=== PATIENT | female | born 1975 | race Caucasian/White ===

== ENCOUNTER 2023-08-15 15:15 | Outpatient (CLI) | payer MEDICAID ==
[2023-08-15 15:38] LABS: BASOPHILS # (AUTO) 0.1 10^3/uL (0.0-0.1); BASOPHILS % (AUTO) 0.7 %; EOSINOPHILS # (AUTO) 0.2 10^3/uL (0.0-0.7); EOSINOPHILS % (AUTO) 2.3 %; HCT - HEMATOCRIT 38.1 % (37.0-47.0); HGB - HEMOGLOBIN 12.4 g/dL (12.0-16.0); LYMPHOCYTES % (AUTO) 25.2 %; MEAN CORPUSCULAR HEMOGLOBIN 31.8 pg (27.0-31.0); MEAN CORPUSCULAR HGB CONC 32.5 g/dL (32.0-36.0); MEAN CORPUSCULAR VOLUME 97.7 fL (81.0-99.0); MEAN PLATELET VOLUME 10.2 fL (7.9-10.8); MONOCYTES # (AUTO) 0.4 10^3/uL (0.0-1.0); MONOCYTES % (AUTO) 5.2 %; NEUTROPHILS # (AUTO) 5.4 10^3/uL (1.5-6.6); NEUTROPHILS % (AUTO) 66.5 %; PLT - PLATELET COUNT 255 10^3/uL (130-450); RED CELL DISTRIBUTION WIDTH 11.6 % (12.0-15.0); WHITE BLOOD COUNT 8.1 x10^3/uL (4.8-10.8)
[2023-08-15 16:06] LABS: % IRON SATURATION 22 % (20-50); ALBUMIN 4.3 g/dL (3.2-5.5); ALBUMIN/GLOBULIN RATIO 1.7 (1.0-2.2); ALKALINE PHOSPHATASE 36 IU/L (42-121); ALT ALANINE AMINOTRANSFERASE 7 IU/L (10-60); AST ASPARTATE AMINOTRANSFERASE 13 IU/L (10-42); BILIRUBIN,TOTAL 0.5 mg/dL (0.2-1.0); BUN - BLOOD UREA NITROGEN 10 mg/dL (6-20); CALCIUM 9.3 mg/dL (8.5-10.3); CARBON DIOXIDE - CO2 29 mmol/L (21-32); CHLORIDE 105 mmol/L (101-111); CHOL/HDL RATIO 2.8 (<4.4); CHOLESTEROL 168 mg/dL; CREATININE 0.8 mg/dL (0.6-1.3); GFR - MDRD 77 (>89); GLUCOSE 91 mg/dL (74-104); HDL CHOLESTEROL 61 mg/dL; IRON 76 ug/dL (50-212); LDL CHOLESTEROL,CALCULATED 89 mg/dL; LDL/HDL RATIO 1.5 (<4.4); POTASSIUM 3.7 mmol/L (3.5-4.5); SODIUM 138 mmol/L (135-145); TOTAL IRON BINDING CAPACITY 350 ug/dL (250-450); TOTAL PROTEIN 6.9 g/dL (6.4-8.9); TRANSFERRIN 250 mg/dL (203-362); TRIGLYCERIDES 89 mg/dL (48-352); VLDL CHOLESTEROL 18 mg/dL
[2023-08-15 16:18] LABS: THYROID STIMULATING HORMONE 0.64 uIU/mL (0.34-5.60)
[2023-08-15 16:24] LABS: FERRITIN 14.3 ng/mL (11.0-306.8)
[2023-08-15 20:52] LABS: CHLAMYDIA TRACHOMATIS DNA NEGATIVE (NEGATIVE); NEISSERIA GONORRHOEAE DNA NEGATIVE (NEGATIVE); TRICHOMONAS VAGINALIS DNA NEGATIVE (NEGATIVE)
[2023-08-16 03:12] LABS: HIV SCREEN 4TH GENERATION Non Reactive (Non Reactive)
[2023-08-16 05:15] LABS: RPR Non Reactive (Non Reactive)
[2023-08-16 08:11] LABS: HSV 2 IGG TYPE SPEC <0.91 index (0.00-0.90); VITAMIN D 25-HYDROXY 32.2 ng/mL (30.0-100.0)
[2023-08-17 01:09] LABS: HCV AB Non Reactive (Non Reactive)
== END 2023-08-15 15:16 | disposition home or self-care (01) ==
LOC: LAB 15:15
PROVIDERS: ATTEND Physician Assistant
DX: Z13.9 Encounter for screening, unspecified (principal); Z20.2 Contact with and (suspected) exposure to infections with a predominantly sexual mode of transmission; E55.9 Vitamin D deficiency, unspecified; E53.8 Deficiency of other specified B group vitamins; E61.1 Iron deficiency
CPT/HCPCS: 36415; 80050; 80061; 82306; 82607; 82728; 83540; 83721; 84466; 86592; 86695; 86696; 86803; 87389; 87491; 87591; 87661

== ENCOUNTER 2023-09-10 14:26 | Outpatient (CLI) | payer MEDICAID ==
--- NOTE | 2023-09-12 08:49 | Mammography Report ---
BILATERAL FIRST EVER DIGITAL SCREENING MAMMOGRAM 3D/2D WITH EXAGGERATED CC: 09/10/2023 CLINICAL: Baseline exam. Routine screening. No prior exams were available for comparison. Both breasts are heterogeneously dense, which may obscure small masses (category c / 51-75% glandular tissue). There are possible a grouped punctate round calcifications in the left breast at 1 o'clock posterior depth. No other significant masses, calcifications, or other findings are seen in either breast. IMPRESSION: INCOMPLETE: NEEDS ADDITIONAL IMAGING EVALUATION The possible grouped punctate round calcifications in the left breast are indeterminate. Diagnostic mammogram for additional views to include mediolateral and spot magnification views is rec ommended. Based on the Tyrer Cuzick model (a risk assessment model) the patient's lifetime risk is 14.8% and he r 10 year risk is 3.0%. According to the ACR, ACS, and NCCN guidelines, an annual breast MRI exam mireya ng with mammogram is recommended if the patient's lifetime risk is 20% or greater. This exam was interpreted at Station ID: [id number]. NOTE: For mammograms, a report in lay terms will be sent to the patient. Approximately 15% of breast malignancies will not be visualized mammographically. In the management of a palpable breast mass, a negative mammogram must not discourage biopsy of a clinically suspicious lesion. Electronically Signed By: Radames Dyer M.D. aty/:09/11/2023 08:55:26 ACR BI-RADS Category 0: Incomplete 3340F PARENCHYMAL PATTERN: (D) - The breast(s) demonstrate(s) heterogeneously dense fibroglandular héctor wang. BI-RADS CATEGORY: (0) - 0 RECOMMENDATION: (ADDMAM) - Recommend additional mammographic views. [id number] Immediate follow-up LATERALITY: (L)
== END 2023-09-10 14:27 | disposition home or self-care (01) ==
LOC: DI.S 14:26
DX: Z12.31 Encounter for screening mammogram for malignant neoplasm of breast (principal); R92.8 Other abnormal and inconclusive findings on diagnostic imaging of breast; R92.333 Mammographic heterogeneous density, bilateral breasts

== ENCOUNTER 2023-09-27 10:49 | Outpatient (CLI) | payer MEDICAID ==
--- NOTE | 2023-09-28 09:23 | Mammography Report ---
UNILATERAL LEFT DIGITAL DIAGNOSTIC MAMMOGRAM 3D/2D WITH LATEROMEDIAL OBLIQUE: 09/27/2023 CLINICAL: Patient returns for magnification views of microcalcifications in the left breast. Comparison is made to exam dated: 09/10/2023 mammogram - [facility]. The left breast is heterogeneously dense, which may obscure small masses (category c / 51-75% glandul ar tissue). There are 1.1 cm grouped round calcifications in the left breast at 1 o'clock middle depth. There is a possible associated focal asymmetry. This corresponds to finding seen on recent baseline screening mammogram. No other significant masses or calcifications are seen in the breast. IMPRESSION: INCOMPLETE: NEEDS ADDITIONAL IMAGING EVALUATION Left breast grouped round calcifications spanning up to approximately 1.1 cm with assocated focal asy mmetry. An ultrasound is recommended for further evaluation and is scheduled to immediately follow th is examination. Based on the Tyrer Cuzick model (a risk assessment model) the patient's lifetime risk is 15.9% and he r 10 year risk is 3.3%. According to the ACR, ACS, and NCCN guidelines, an annual breast MRI exam mireya ng with mammogram is recommended if the patient's lifetime risk is 20% or greater. This exam was interpreted at Station ID: [id number]. NOTE: For mammograms, a report in lay terms will be sent to the patient. Approximately 15% of breast malignancies will not be visualized mammographically. In the management of a palpable breast mass, a negative mammogram must not discourage biopsy of a clinically suspicious lesion. Electronically Signed By: Jodie Gao M.D., Ph.D. eb/:09/27/2023 13:46:27 ACR BI-RADS Category 0: Incomplete 3340F PARENCHYMAL PATTERN: (D) - The breast(s) demonstrate(s) heterogeneously dense fibroglandular parlisay ma. BI-RADS CATEGORY: (0) - 0 RECOMMENDATION: (ADDMAM) - Recommend additional mammographic views. [id number] Immediate follow-up LATERALITY: (B)
--- NOTE | 2023-09-28 09:24 | Ultrasound Report ---
LIMITED ULTRASOUND OF LEFT BREAST: 09/27/2023 CLINICAL: Patient returns today to evaluate a focal asymmetry in the left breast. Comparison is made to exams dated: 09/27/2023 mammogram and 09/10/2023 mammogram - [facility]. Color flow and real-time ultrasound of the left breast 1 o'clock region were performed. Leonardo scale images of the real-time examination were reviewed. No sonographic correlate for focal asymmetry in the left breast at 1 o'clock, 5 cm from the nipple. IMPRESSION: PROBABLY BENIGN Left breast grouped punctate calcifications at 1 o'clock middle depth with associated focal asymmetry initially seen on baseline screening mammogram. No ultrasound correlate identified for focal asymmet ry. Finding is probably benign. Recommend follow-up mammogram in 6 months to demonstrate stability. Findings and recommendations were conveyed to the patient during today's evaluation. This exam was interpreted at Station ID: [id number]. Electronically Signed By: Jodie Gao M.D., Ph.D. eb/:09/27/2023 14:45:02 Ultrasound BI-RADS: 3 Probably benign BI-RADS CATEGORY: (3) - 3 Mammogram [id number] 6 month follow-up LATERALITY: (B)
== END 2023-09-27 10:50 | disposition home or self-care (01) ==
LOC: DI 10:49
PROVIDERS: ATTEND Physician Assistant
DX: R92.8 Other abnormal and inconclusive findings on diagnostic imaging of breast (principal); R92.1 Mammographic calcification found on diagnostic imaging of breast; R92.332 Mammographic heterogeneous density, left breast